=== PATIENT | male | born 1980 | race Two or more races ===

== ENCOUNTER → 2017-04-24 | Outpatient (CLI) | payer OTHER | END | disposition home or self-care (01) | LOC: CFH 08:38 | PROVIDERS: ATTEND Nurse Practitioner | DX: K21.9 Gastro-esophageal reflux disease without esophagitis (principal) | CPT/HCPCS: 74220 ==

== ENCOUNTER 2017-05-03 13:25 | Emergency (ER) | payer OTHER ==
[~2017-05-03] VITALS: Ht 167.6 cm; Wt 89.9 kg
[2017-05-03 13:42] VITALS: BP 125/65
[2017-05-03] MEDS ORDERED: DIPH,PERTUSS(ACELL),TET VAC/PF 0.5 ML IM-VACC ONE ×2 (14:00→14:18)
== END 2017-05-03 14:47 | disposition home or self-care (01) ==
LOC: ED 14:46
DX: S61.032A Puncture wound without foreign body of left thumb without damage to nail, initial encounter (principal); Z23 Encounter for immunization; Y29.XXXA Contact with blunt object, undetermined intent, initial encounter; Y93.89 Activity, other specified; Y99.0 Civilian activity done for income or pay; Y92.69 Other specified industrial and construction area as the place of occurrence of the external cause
CPT/HCPCS: 90471; 90715

== ENCOUNTER → 2017-05-18 | Outpatient (CLI) | payer OTHER | LOC: CFH 10:05 | PROVIDERS: ATTEND Nurse Practitioner | DX: Z02.9 Encounter for administrative examinations, unspecified (principal) ==

== ENCOUNTER 2020-10-10 04:09 | Emergency (ER) | payer OTHER ==
[~2020-10-10] VITALS: Ht 167.6 cm; Wt 95.9 kg
--- NOTE | 2020-10-10 04:24 | NUR ---
INITIAL PT CONTACT. PT PRESENTS TO THE ED C/O RIGHT SIDE CHEST AND BACK PAIN X2 DAYS. PT DENIES ANY RECENT TRAUMA. PT STATES HE WOKE UP WITH THE PAIN THIS EVENING. PT REPORTS WORSE PAIN "WHEN LAYING AGAINST THE BED AND SOMETIMES MOVING OR TAKING A DEEP BREATH". PT SITTING UPRIGHT ON GURNEY, CONTINUOUS PULSE OX AND CARDIAC MONITORING IN PLACE. PT DENIES ANY NEEDS AT THIS TIME. CALL LIGHT AND BELONGINGS WITHIN REACH.
--- NOTE | 2020-10-10 05:01 | NUR ---
PT SITTING UPRIGHT ON GURNEY, CONTINUOUS PULSE OX AND CARDIAC MONITORING IN PLACE. PT DENIES ANY NEEDS AT THIS TIME. CALL LIGHT AND BELONGINGS WITHIN REACH. AWAITING ERP AT THIS TIME.
[2020-10-10] MEDS ORDERED: KETOROLAC 60 MG/2 ML ONE (05:11)
[2020-10-10] MEDS ORDERED: METHOCARBAMOL 750 MG TABLET ONE (05:12)
[2020-10-10] MEDS ORDERED: KETOROLAC 30 MG/1 ML IM ONE (05:30)
[2020-10-10] MEDS ORDERED: METHOCARBAMOL 750 MG TABLET PO ONE (05:30)
--- NOTE | 2020-10-10 05:35 | NUR ---
xray at bedside
--- NOTE | 2020-10-10 06:15 | NUR ---
PT STANDING IN ROOM, NAD, VSS. PT REPORTS DECREASED PAIN FOLLOWING [employer]. PT DENIES ANY ADDITIONAL NEEDS AT THIS TIME. CALL LIGHT AND BELONGINGS WITHIN REACH
[2020-10-10 06:31] VITALS: BP 132/83
--- NOTE | 2020-10-10 06:40 | NUR ---
ERP AT BEDSIDE
== END 2020-10-10 06:52 | disposition home or self-care (01) ==
LOC: ED 05:48
DX: S46.911A Strain of unspecified muscle, fascia and tendon at shoulder and upper arm level, right arm, initial encounter (principal); M77.8 Other enthesopathies, not elsewhere classified; R07.89 Other chest pain; X58.XXXA Exposure to other specified factors, initial encounter; Y93.89 Activity, other specified; Y92.89 Other specified places as the place of occurrence of the external cause; Y99.8 Other external cause status
CPT/HCPCS: 71045; 73080; 96372; 99284; J1885